=== PATIENT | male | born 1990 | race Caucasian/White ===

== ENCOUNTER 2017-06-28 14:13 | Emergency (ER) | payer MEDICAID ==
--- NOTE | 2017-06-28 14:44 | ED Physician Chart ---
ED Chief Complaint/HPI - Patient Information Date Seen:: 06/28/17 Time Seen:: 14:39 Chief Complaint:: bug bites for 5 days History of Present Illness:: 26 yo homeless male stated that he had bug bites on the left forearm, left leg and left buttock 5 days ago. The skin surrounding bites are painful and become red with swelling. He denies any fever or chills. Allergies:: Allergies Allergy/AdvReac Type Severity Reaction Status Date / Time No Known Allergies Allergy Verified 06/28/17 14:30 Vitals:: Vital Signs - 8 hr 06/28/17 14:30 Temp 97.6 F HR 76 RR 16 BP 116/69 O2 Sat % 98 ED Review of Systems - Review of Systems General/Constitutional: No fever, No chills Skin: Skin lesions Head: No headache Eyes: No loss of vision ENT: No earache Neck: No neck pain Cardio Vascular: No chest pain Pulmonary: No SOB GI: No nausea, No vomiting Musculoskeletal: Other (left calf pain) ED Past Medical History - Past Medical History Past Medical History: No significant medical hx Social History: Smoker, No Alcohol, Illicit Drug Use (methamphetamine, opiates) Surgical History: None Family Medical History - Family Member Mother History Unknown: Yes ED Physical Exam - Physical Examination General/Constitutional: Alert Head: Atraumatic Eyes: PERRL Other Skin comments:: Left forearm ulnar side skin ulcer. Left calf erythema, tenderness and warmth. An ulcer on the left upper gluteal area, lateral to the cleft. Neck: Full ROM w/o pain Respiratory: Clear to Auscultation, No Wheeze/Rhonchi/Rales Cardio Vascular: RRR, No murmur, gallop, rubs, NL S1 S2 GI: No tenderness/rebounding/guarding Extremities: No edema Neuro/Psych: No focal deficits ED Assessment - Assessment General Assessment: 26 yo male has left forearm cellulitis and abscess, left calf cellulitis, left gluteal cellulitis. Critical Care Time: 30 min Excludes all billable procedures: Yes This condition life threatening/high prob of deterioration: No Assessment/Comments:: CBC, CMP, blood culture, wound culture Urine drug screen Zosyn Vancomycin ED Septic Shock - . Is Septic Shock (SBP<90, OR Lactate>4 mmol\L) present?: No - <6hrs of presentation: Vital Signs: Vital Signs - 8 hr 10/20/17 14:30 Temp 97.6 F HR 76 RR 16 BP 116/69 O2 Sat % 98 ED Reassessment (Disposition) - Reassessment Reassessment Condition:: Improved - Aftercare/Follow up Instructions Notes:: The patient received Zosyn, but refused to provide urine sample, and refused Vancomycin. He demanded morphine which was not warranted at this time. The patient became left against medical advice despite the warning of worsening cellulitis and possibility of sepsis.
[2017-06-28] MEDS ORDERED: Vancomycin HCl 1.5 GM in Sodium Chloride 0.9% 500 ML IV ONE (14:53)
[2017-06-28 15:40] LABS: % BASOPHILS 1.6 % (0.0-2.0); % EOSINOPHILS 2.9 % (0.0-5.0); % LYMPHOCYTES 27.9 % (20.0-50.0); % MONOCYTES 10.1 % (2.0-10.0); % NEUTROPHILS 57.5 % (40.0-80.0); HEMATOCRIT 43.9 % (41.0-60); HEMOGLOBIN 14.5 gm/dL (12-16); MEAN CELL VOLUME 81.2 fl (80-99); MEAN CORPUSCULAR HEMOGLOBIN 26.9 pg (26.0-30.0); MEAN CORPUSCULAR HGB CONC 33.1 pg (28.0-36.0); MEAN PLATELET VOLUME 7.6 fl; NEUTROPHILE ABSOLUTE 5.4 Th/cmm (1.8-8.0); PLATELET COUNT 247 Th/cmm (150-400); RED BLOOD COUNT 5.41 Mil/cmm (4.30-5.70); RED CELL DISTRIBUTION WIDTH 13.6 % (11.5-20.0); WHITE BLOOD COUNT 9.4 Th/cmm (4.8-10.8)
[2017-06-28] MEDS ORDERED: Piperacillin Sodium/Tazobact 3.375 gm Vial IV ONE (15:42)
[2017-06-28 15:53] LABS: ALB/GLOB RATIO 1.2 (1.0-1.8); ALKALINE PHOSPHATASE 70 U/L (34-104); ANION GAP 9.3 (7.0-16.0); BILIRUBIN,TOTAL 0.2 mg/dL (0.3-1.0); BUN - UREA NITROGEN 12 mg/dL (7-25); CALCIUM SERUM 9.4 mg/dL (8.6-10.3); CARBON DIOXIDE 28.7 mEq/L (21.0-31.0); CHLORIDE 102 mEq/L (98-107); CREATININE - SERUM 0.8 mg/dL (0.7-1.3); GLUCOSE 62 mg/dL (70-105); SGOT 26 U/L (13-39); SGPT/ALT 21 U/L (7-52); SODIUM SERUM 136 mEq/L (136-145)
== END 2017-06-28 16:23 | disposition left against medical advice (07) ==
LOC: ER 14:13
DX: L03.114 Cellulitis of left upper limb (principal); L03.317 Cellulitis of buttock; L03.116 Cellulitis of left lower limb; F17.200 Nicotine dependence, unspecified, uncomplicated; F11.10 Opioid abuse, uncomplicated; F15.10 Other stimulant abuse, uncomplicated
CPT/HCPCS: 99291; 96365; 36415; 87205; 85025; 80053; 87040 ×2; 87075; 87070; J2543; Z7502; Z7610